=== PATIENT | female | born 1970 ===

== ENCOUNTER 2016-11-18 12:57 | Emergency (ER) | payer MEDICARE, OTHER, MEDICAID ==
[2016-11-18 13:10] VITALS: BMI 30.2
[2016-11-18 13:12] VITALS: TEMP 98.2
[2016-11-18 14:09] LABS: ADD MANUAL DIFF? NO
[2016-11-18 14:14] LABS: BASO # 0.02 K/mm3 (0.0-2.0); BASO % 0.2 % (0.0-3.0); EOS % 0.1 % (1.5-5.0); GRAN # 8.91 (1.4-6.5); GRAN % 76.3 % (50.0-68.0); HEMATOCRIT 40.2 % (36.0-48.0); LYMPH # 1.7 (1.2-3.4); LYMPH % 14.4 % (22.0-35.0); MEAN CELL VOLUME 80.6 fL (80.0-105.0); MEAN CORPUSCULAR HEMOGLOBIN 28.5 pg (25.0-35.0); MEAN CORPUSCULAR HGB CONC 35.3 g/dl (31.0-37.0); MEAN PLATELET VOLUME 10.1 fl (7.0-11.0); MONO # 1.1 (0.1-0.6); PLATELET COUNT 300 10^3/uL (120.0-450.0); RED CELL DISTRIBUTION WIDTH 15.7 % (11.5-14.5); WHITE BLOOD COUNT 11.7 10^3/ul (4.5-11.0)
[2016-11-18 14:24] LABS: INR 1.17 (0.93-1.08); PARTIAL THROMBOPLASTIN TIME 29.4 Seconds (23.7-30.8)
[2016-11-18 14:25] LABS: ALB/GLOB RATIO 1.2 (1.1-1.8); ALKALINE PHOSPHATASE 63 U/L (38-133); ALT/SGPT 27 U/L (7-56); AST/SGOT 35 U/L (15-39); BILIRUBIN,TOTAL 0.7 mg/dL (0.2-1.3); BLOOD UREA NITROGEN 10 mg/dL (7-21); CALCIUM 9.6 mg/dL (8.4-10.5); CARBON DIOXIDE 20 mmol/L (21-33); CHLORIDE 98 mmol/L (98-107); GFR AFRICAN-AMERICAN > 60; GLUCOSE,RANDOM 211 mg/dL (70-110); POTASSIUM 3.9 mmol/L (3.6-5.0); SODIUM 134 mmol/L (132-148); TOTAL PROTEIN 8.9 g/dL (5.8-8.3)
--- NOTE | 2016-11-18 14:25 | ED PDOC ---
Arrival/HPI - General Chief Complaint: Psychiatric Evaluation Time Seen by Provider: 11/18/16 14:16 Historian: Patient - History of Present Illness Narrative History of Present Illness (Text): 11/18/16 14:25 45yo female with psychiatric disease history BIBA for psych evaluation. Per the triage note, EMS reported that family patient called because she was violent and noncompliant with her medication. Patient however admits that she takes her medication daily. States she is not sure who called or why EMS was called for her. States she was on Xanax, but stopped taking it to detox herself from it. Denies hallucination, SI/HI, somatic complaint, drug use, any other complaint. Past Medical History - Provider Review Nursing Documentation Reviewed: Yes - Infectious Disease Hx of Infectious Diseases: None - Tetanus Immunization Tetanus Immunization: Unknown - Past Medical History Past Medical History: No Previous - Cardiac Hx Cardiac Disorders: No - Pulmonary Hx Respiratory Disorders: No - Neurological Hx Neurological Disorder: No - HEENT Hx HEENT Disorder: No - Renal Hx Renal Disorder: No - Endocrine/Metabolic Hx Endocrine Disorders: No - Hematological/Oncological Hx Blood Disorders: No - Integumentary Hx Dermatological Disorder: No - Musculoskeletal/Rheumatological Hx Musculoskeletal Disorders: No - Gastrointestinal Hx Gastrointestinal Disorders: No - Genitourinary/Gynecological Hx Genitourinary Disorders: No - Psychiatric Hx Psychophysiologic Disorder: Yes Hx Bipolar Disorder: Yes Hx Depression: No Hx Emotional Abuse: No Hx Physical Abuse: No Hx Schizophrenia: Yes Hx Substance Use: Yes (marijuana) - Surgical History Other/Comment: gastric sleeve - Anesthesia Hx Anesthesia: No Hx Anesthesia Reactions: No Hx Malignant Hyperthermia: No - Suicidal Assessment Feels Threatened In Home Enviroment: No Family/Social History - Physician Review Nursing Documentation Reviewed: Yes Family/Social History: Unknown Family HX Smoking Status: Current Some Days Smoker Hx Alcohol Use: Yes Frequency of alcohol use: Few days per week Hx Substance Use: Yes (marijuana) Substance used: Herion, Cocaine, PCP Hx Substance Use Treatment: Yes Allergies/Home Meds Allergies/Adverse Reactions: Allergies codeine Allergy (Verified 11/18/16 13:12) NAUSEA Home Medications: Home Meds Medication Instructions Recorded Confirmed DULoxetine [Cymbalta] 30 mg PO DAILY 01/21/14 07/11/15 Review of Systems - Physician Review All systems were reviewed & negative as marked: Yes - Review of Systems Constitutional: Normal Eyes: Normal ENT: Normal Respiratory: Normal Cardiovascular: Normal Gastrointestinal: Normal Genitourinary Female: Normal Musculoskeletal: Normal Skin: Normal Neurological: Normal Endocrine: Normal Hemo/Lymphatic: Normal Psychiatric: Other (Psych evaluation) Physical Exam Vital Signs Reviewed: Yes Vital Signs Temp Pulse Resp BP Pulse Ox 11/18/16 23:10 90 18 91/59 L 95 11/18/16 21:00 88 18 96/60 L 95 11/18/16 19:04 85 18 110/62 95 11/18/16 18:24 91 H 16 110/62 96 11/18/16 18:05 94 H 18 100/57 L 97 11/18/16 13:12 170/108 H 11/18/16 13:11 98.2 F 100 H 16 98 Temperature: Afebrile Blood Pressure: Normal Pulse: Regular Respiratory Rate: Normal Appearance: Positive for: Well-Appearing, Non-Toxic, Comfortable Pain Distress: None Mental Status: Positive for: Alert and Oriented X 3 - Systems Exam Head: Present: Atraumatic, Normocephalic Pupils: Present: PERRL Extroacular Muscles: Present: EOMI Conjunctiva: Present: Normal Mouth: Present: Moist Mucous Membranes Neck: Present: Normal Range of Motion Respiratory/Chest: Present: Clear to Auscultation, Good Air Exchange. No: Respiratory Distress, Accessory Muscle Use Cardiovascular: Present: Regular Rate and Rhythm, Normal S1, S2. No: Murmurs Abdomen: Present: Normal Bowel Sounds. No: Tenderness, Distention, Peritoneal Signs Back: Present: Normal Inspection Upper Extremity: Present: Normal Inspection. No: Cyanosis, Edema Lower Extremity: Present: Normal Inspection. No: Edema Neurological: Present: GCS=15, CN II-XII Intact, Speech Normal Skin: Present: Warm, Dry, Normal Color. No: Rashes Psychiatric: Present: Alert, Oriented x 3, Normal Insight, Normal Concentration Medical Decision Making ED Course and Treatment: 11/18/16 18:21 Pt biba for psych evaluation. while in ED she was loud and agitated. she was sedated for both her own safety and ED staffs. Lab was unremarkable Chest xray NAD Pt was medically cleared for psych evaluation. - Lab Interpretations Lab Results: 11/18/16 14:08 11/18/16 14:08 Lab Results 11/18/16 16:00: Alcohol, Quantitative < 10 11/18/16 16:00: Urine Opiates Screen Negative, Urine Methadone Screen Negative, Ur Barbiturates Screen Negative, Ur Phencyclidine Scrn Negative, Ur Amphetamines Screen Negative, U Benzodiazepines Scrn Negative, U Oth Cocaine Metabols Negative, U Cannabinoids Screen Negative 11/18/16 16:00: Urine Color Straw, Urine Appearance Clear, Urine pH 7.0, Ur Specific [place] <= 1.005, Urine Protein Negative, Urine Glucose (UA) Negative, Urine Ketones Negative, Urine Blood Trace-intact H, Urine Nitrate Negative, Urine Bilirubin Negative, Urine Urobilinogen 0.2, Ur Leukocyte Esterase Negative , Urine RBC 0 - 2, Urine WBC 0 - 2, Ur Epithelial Cells 1 - 3, Urine Bacteria Small, Urine HCG, Qual Negative 11/18/16 14:08: Salicylates < 1 L, Acetaminophen < 10.0 L 11/18/16 14:08: Sodium 134, Potassium 3.9, Chloride 98, Carbon Dioxide 20 L, Anion Gap 20, BUN 10, Creatinine 0.7, Est GFR ( Amer) > 60, Est GFR (Non- Af Amer) > 60, Random Glucose 211 H, Calcium 9.6, Total Bilirubin 0.7, AST 35, ALT 27, Alkaline Phosphatase 63, Total Protein 8.9 H, Albumin 4.8, Globulin 4.1 , Albumin/Globulin Ratio 1.2, Alcohol, Quantitative Cancelled 11/18/16 14:08: PT 12.6 H, INR 1.17 H, APTT 29.4 11/18/16 14:08: WBC 11.7 H D, RBC 4.99, Hgb 14.2, Hct 40.2, MCV 80.6, MCH 28.5, MCHC 35.3, RDW 15.7 H, Plt Count 300, MPV 10.1, Gran % 76.3 H, Lymph % (Auto) 14.4 L, [place] % (Auto) 9.0 H, Eos % (Auto) 0.1 L, Baso % (Auto) 0.2, Gran # 8.91 H, Lymph # 1.7, [place] # 1.1 H, Eos # 0.0, Baso # 0.02 - RAD Interpretation Radiology Orders: 11/18/16 15:23 CHEST PORTABLE [RAD] Stat - Medication Orders Current Medication Orders: Discontinued Medications Lorazepam (Ativan) Confirm Administered Dose 2 mg .ROUTE .STK-MED ONE Stop: 11/19/16 08:36 Lorazepam (Ativan) Confirm Administered Dose 2 mg .ROUTE .STK-MED ONE Stop: 11/19/16 16:59 Ziprasidone (Geodon Inj) 20 mg IM STAT STA PRN Reason: Protocol Stop: 11/18/16 16:10 Last Admin: 11/18/16 16:37 Dose: 20 mg Ziprasidone (Geodon Inj) Confirm Administered Dose 20 mg IM .STK-MED ONE Stop: 11/19/16 03:40 Ziprasidone (Geodon Inj) Confirm Administered Dose 20 mg IM .STK-MED ONE Stop: 11/19/16 08:35 Ziprasidone (Geodon Inj) Confirm Administered Dose 20 mg IM .STK-MED ONE Stop: 11/19/16 16:58 Disposition/Present on Arrival - Present on Arrival Any Indicators Present on Arrival: No History of DVT/PE: No History of Uncontrolled Diabetes: No Urinary Catheter: No History of Decub. Ulcer: No History Surgical Site Infection Following: None - Disposition Have Diagnosis and Disposition been Completed?: Yes Diagnosis: Psychosis Disposition: HOME/ ROUTINE Disposition Time: 08:00 Patient Plan: Discharge Condition: STABLE Referrals: PCP,NO [Primary Care Provider] - Follow up with primary
[2016-11-18 16:18] LABS: URINE BILIRUBIN NEGATIVE (NEGATIVE); URINE BLOOD TRACE-INTACT (NEGATIVE); URINE GLUCOSE (UA) NEGATIVE (NEGATIVE); URINE KETONE NEGATIVE (NEGATIVE); URINE LEUKOCYTE ESTERASE NEGATIVE Leu/uL (NEGATIVE); URINE PROTEIN NEGATIVE mg/dL (<30 mg/dL); URINE UROBILINOGEN 0.2 E.U./dL (<1 E.U./dL)
[2016-11-18 16:23] LABS: URINE APPEARANCE CLEAR (CLEAR); URINE COLOR STRAW (YELLOW)
[2016-11-18 16:58] LABS: URINE RBC 0 - 2 /hpf (0-2); URINE WBC 0 - 2 /hpf (0-6)
[2016-11-18 16:59] LABS: URINE BACTERIA SMALL (NEG)
--- NOTE | 2016-11-18 17:58 | RAD ---
HISTORY: admission COMPARISON: Chest x-ray performed 08/18/12 TECHNIQUE: Chest, one view. FINDINGS: LUNGS: No focal consolidation. Please note that chest x-ray has limited sensitivity for the detection of pulmonary masses. PLEURA: No significant pleural effusion identified. No definite pneumothorax . CARDIOVASCULAR: The cardiomediastinal silhouette appears within normal limits of size. OSSEOUS STRUCTURES: Degenerative changes of the spine. VISUALIZED UPPER ABDOMEN: Unremarkable. OTHER FINDINGS: None. IMPRESSION: No focal consolidation, significant pleural effusion, or definite pneumothorax identified.
[2016-11-18 19:05] VITALS: RESP 18; O2SAT 95
--- NOTE | 2016-11-18 22:17 | CARD ---
APPROVED REPORT EKG Measurement Heart [id number] SC [id number] <Conclusion> Normal sinus rhythm T wave abnormality, consider anterior ischemia Prolonged QT Abnormal ECG
[2016-11-18 23:11] VITALS: BP 91/59; PULSE 90
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
== END 2016-11-19 22:17 | disposition home or self-care (01) ==
LOC: ED 12:57
DX: F29 Unspecified psychosis not due to a substance or known physiological condition (principal)
CPT/HCPCS: 71010; 80053; 81001; 84703; 85025; 85610; 85730; 90791; 93005; 96372; 99285; G0480; J3486

== ENCOUNTER 2017-01-07 20:19 | Inpatient (IN) | payer MEDICARE, OTHER ==
[2017-01-07 20:27] VITALS: BMI 28.3
--- NOTE | 2017-01-07 20:37 | ED PDOC ---
Arrival/HPI - General Chief Complaint: Psychiatric Evaluation Time Seen by Provider: 01/07/17 20:32 Historian: Patient - History of Present Illness Narrative History of Present Illness (Text): 01/07/17 20:37 This 46 yo female with pmh bipolar disorder, aggressive behavior, presents to this ED for PES evaluation. Patient stated she has been suicidal for over 3 weeks. She feels irritable. She stated medication are not reliving her symptoms. She wants to get admitted into the hospital. Denies HI, paranoia, hallucination. Denies other complains. Time/Duration: Other (see HPI) Context: Home Past Medical History - Provider Review Nursing Documentation Reviewed: Yes - Infectious Disease Hx of Infectious Diseases: None - Tetanus Immunization Tetanus Immunization: Unknown - Past Medical History Past Medical History: No Previous - Cardiac Hx Cardiac Disorders: No - Pulmonary Hx Respiratory Disorders: No - Neurological Hx Neurological Disorder: No - HEENT Hx HEENT Disorder: No - Renal Hx Renal Disorder: No - Endocrine/Metabolic Hx Endocrine Disorders: No - Hematological/Oncological Hx Blood Disorders: No - Integumentary Hx Dermatological Disorder: No - Musculoskeletal/Rheumatological Hx Musculoskeletal Disorders: No - Gastrointestinal Hx Gastrointestinal Disorders: No - Genitourinary/Gynecological Hx Genitourinary Disorders: No - Psychiatric Hx Psychophysiologic Disorder: Yes Hx Bipolar Disorder: Yes Hx Depression: No Hx Emotional Abuse: No Hx Physical Abuse: No Hx Schizophrenia: Yes Hx Substance Use: Yes (marijuana) Other/Comment: h/o suicide attempt by overdosing on pills - Surgical History Other/Comment: gastric sleeve - Anesthesia Hx Anesthesia: Yes Hx Anesthesia Reactions: No Hx Malignant Hyperthermia: No - Suicidal Assessment Feels Threatened In Home Enviroment: No Family/Social History - Physician Review Nursing Documentation Reviewed: Yes Family/Social History: No Known Family HX Smoking Status: Heavy Smoker > 10 Cigarettes Daily Hx Alcohol Use: Yes (stopped 8 years ago) Hx Substance Use: Yes (marijuana) Substance used: Herion, Cocaine, PCP Hx Substance Use Treatment: Yes Allergies/Home Meds Allergies/Adverse Reactions: Allergies codeine Allergy (Verified 01/08/17 05:25) NAUSEA Home Medications: Home Meds Medication Instructions Recorded Confirmed DULoxetine [Cymbalta] 60 mg PO DAILY 01/21/14 01/08/17 Alprazolam [Xanax] 1 mg PO BID 01/08/17 01/08/17 Divalproex [Depakote] 1,000 mg PO HS 01/08/17 01/08/17 QUEtiapine [SEROquel] 50 mg PO DAILY 01/08/17 01/08/17 SEROquel 300 mg PO HS 01/08/17 01/08/17 Review of Systems - Review of Systems Constitutional: Normal. absent: Fatigue, Weight Change, Fevers Eyes: Normal ENT: Normal Respiratory: Normal Cardiovascular: Normal Gastrointestinal: Normal Genitourinary Female: Normal Musculoskeletal: Normal Skin: Normal Neurological: Normal Endocrine: Normal Hemo/Lymphatic: Normal Psychiatric: Depression, Suicidal Ideation Physical Exam Vital Signs Temp Pulse Resp BP Pulse Ox 01/08/17 03:11 71 18 127/81 98 01/07/17 23:30 70 18 126/69 100 01/07/17 20:27 98.0 F 76 18 116/84 97 Temperature: Afebrile Blood Pressure: Normal Pulse: Regular Respiratory Rate: Normal Appearance: Positive for: Well-Appearing, Non-Toxic, Comfortable Pain Distress: None Mental Status: Positive for: Alert and Oriented X 3 - Systems Exam Head: Present: Atraumatic, Normocephalic Pupils: Present: PERRL Extroacular Muscles: Present: EOMI Conjunctiva: Present: Normal Mouth: Present: Moist Mucous Membranes Neck: Present: Normal Range of Motion Respiratory/Chest: Present: Clear to Auscultation, Good Air Exchange. No: Respiratory Distress, Accessory Muscle Use Cardiovascular: Present: Regular Rate and Rhythm, Normal S1, S2. No: Murmurs Abdomen: Present: Normal Bowel Sounds. No: Tenderness, Distention, Peritoneal Signs Back: Present: Normal Inspection Upper Extremity: Present: Normal Inspection, Normal ROM, NORMAL PULSES, Neurovascularly Intact, Capillary Refill < 2s. No: Cyanosis, Edema Lower Extremity: Present: Normal Inspection, NORMAL PULSES, Normal ROM, Neurovascularly Intact, Capillary Refill < 2 s. No: Edema, CALF TENDERNESS Neurological: Present: GCS=15, CN II-XII Intact, Speech Normal, Motor Func Grossly Intact, Normal Sensory Function, Normal Cerebellar Funct, Gait Normal, Memory Normal Skin: Present: Warm, Dry, Normal Color. No: Rashes Psychiatric: Present: Alert, Oriented x 3, Homicidal Ideation Medical Decision Making ED Course and Treatment: 01/07/17 23:06 PES screener stated patient is becoming irritable, and she does not want to be admitted in the hospital. PES screener is recommending [facility] PES evaluation for involuntary. 01/07/17 23:09 Patient is medically clear for psychiatric admission Re-evaluation Time: 23:08 Reassessment Condition: Re-examined, Improving,but remains with symptoms - Lab Interpretations Lab Results: 01/07/17 22:10 01/07/17 22:10 Lab Results 01/07/17 22:10: Alcohol, Quantitative < 10 01/07/17 22:10: Salicylates < 1 L, Acetaminophen < 10.0 L 01/07/17 22:10: Sodium 139, Potassium 4.2, Chloride 105, Carbon Dioxide 28, Anion Gap 10, BUN 13, Creatinine 0.7, Est GFR ( Amer) > 60, Est GFR (Non- Af Amer) > 60, Random Glucose 76, Calcium 8.8, Total Bilirubin 0.4, AST 26, ALT 21, Alkaline Phosphatase 57, Total Protein 7.7, Albumin 3.9, Globulin 3.7, Albumin/Globulin Ratio 1.1 01/07/17 22:10: WBC 7.2 D, RBC 4.52, Hgb 12.6, Hct 37.6, MCV 83.2, MCH 27.9, MCHC 33.5, RDW 15.4 H, Plt Count 240, MPV 9.8, Gran % 55.9, Lymph % (Auto) 33.4 , [place] % (Auto) 7.2 H, Eos % (Auto) 3.2, Baso % (Auto) 0.3, Gran # 4.04, Lymph # 2.4, [place] # 0.5, Eos # 0.2, Baso # 0.02 01/07/17 20:45: Urine Opiates Screen Negative, Urine Methadone Screen Negative, Ur Barbiturates Screen Negative, Ur Phencyclidine Scrn Negative, Ur Amphetamines Screen Negative, U Benzodiazepines Scrn Positive H, U Oth Cocaine Metabols Negative, U Cannabinoids Screen Negative 01/07/17 20:45: Urine Color Yellow, Urine Appearance Clear, Urine pH 6.0, Ur Specific [place] >= 1.030, Urine Protein Negative, Urine Glucose (UA) Negative, Urine Ketones Trace H, Urine Blood Negative, Urine Nitrate Negative, Urine Bilirubin Negative, Urine Urobilinogen 0.2, Ur Leukocyte Esterase Negative, Urine HCG, Qual Negative - RAD Interpretation Narrative RAD Interpretations (Text): 01/07/17 23:08 CHEST X-RAYS: NO ACTIVE DISEASE Radiology Orders: 01/07/17 20:37 CHEST PORTABLE [RAD] Stat - EKG Interpretation Interpreted by ED Physician: Yes (nsr @ [address] chages. normal interval) Type: 12 lead EKG Comparison: No previous EKG avail. - Medication Orders Current Medication Orders: Acetaminophen (Tylenol 325mg Tab) 650 mg PO Q4 PRN PRN Reason: Pain, moderate (4-7) Last Admin: 01/08/17 19:04 Dose: 650 mg Re-Assess: MAR Pain/Vitals Document 01/08/17 20:04 WP (Rec: 01/09/17 01:46 WP [id number]) Pain Reassessment Is This A Pain ReAssessment? Yes Sleep Is patient sleeping during reassessment? No Presence of Pain Presence of Pain No Al Hydrox/Mg Hydrox/Simethicone (Maalox Plus 30 Ml) 30 ml PO DAILY PRN PRN Reason: Upset Stomach Last Admin: 01/08/17 19:03 Dose: 30 ml Atorvastatin Calcium (Lipitor) 40 mg PO DIN ANSON Last Admin: 01/10/17 16:04 Dose: 40 mg Clonazepam (Klonopin) 1 mg PO BID ANSON PRN Reason: Protocol Last Admin: 01/10/17 16:04 Dose: 1 mg Re-Assess: Reassess Psych Meds Document 01/10/17 17:04 TW (Rec: 01/10/17 17:16 TW [id number]) Reassess Psych Med Effective Divalproex Sodium (Depakote Dr(*Bid*)) 500 mg PO [facility] Last Admin: 01/10/17 09:12 Dose: 500 mg Re-Assess: Reassess Psych Meds Document 01/10/17 10:12 TW (Rec: 01/10/17 10:17 TW [id number]) Reassess Psych Med Effective Divalproex Sodium (Depakote Er(Once Daily)) 500 mg PO 1400 [facility] Last Admin: 01/10/17 16:04 Dose: 500 mg Re-Assess: Reassess Psych Meds Document 01/10/17 17:04 TW (Rec: 01/10/17 17:16 [id number]) Reassess Psych Med Effective Fluoxetine HCl (Prozac) 30 mg PO DAILY [facility] Magnesium Hydroxide (Milk Of Magnesia) 30 ml PO DAILY PRN PRN Reason: Constipation Nicotine (Nicoderm Cq) 1 patch TD DAILY [facility] Last Admin: 01/10/17 09:12 Dose: 1 patch Quetiapine Fumarate (Seroquel) 150 mg PO [facility] ANSON PRN Reason: Protocol Last Admin: 01/10/17 09:13 Dose: 150 mg Re-Assess: Reassess Psych Meds Document 01/10/17 10:13 TW (Rec: 01/10/17 10:17 [id number]) Reassess Psych Med Effective Ziprasidone (Geodon Cap) 20 mg PO Q6H PRN; Protocol PRN Reason: agitation/psychosis Last Admin: 01/10/17 03:38 Dose: 20 mg Re-Assess: Reassess Psych Meds Document 01/10/17 08:23 TW (Rec: 01/10/17 08:23 [id number]) Reassess Psych Med Effective Ziprasidone (Geodon Inj) 20 mg IM Q6H PRN; Protocol PRN Reason: agitation/aggression/psychosis Zolpidem Tartrate (Ambien) 5 mg PO HS PRN; Protocol PRN Reason: Insomnia Discontinued Medications Divalproex Sodium (Depakote Dr(*Bid*)) 500 mg PO 1400 [facility] Fluoxetine HCl (Prozac) 20 mg PO DAILY [facility] Last Admin: 01/10/17 09:13 Dose: 20 mg Lorazepam (Ativan) 2 mg IM ONCE ONE PRN Reason: Protocol Stop: 01/07/17 23:22 Last Admin: 01/07/17 23:32 Dose: 2 mg Lorazepam (Ativan) 2 mg IM ONCE ONE PRN Reason: Protocol Stop: 01/08/17 02:49 Last Admin: 01/08/17 03:10 Dose: 2 mg Disposition/Present on Arrival - Present on Arrival Any Indicators Present on Arrival: No History of DVT/PE: No History of Uncontrolled Diabetes: No Urinary Catheter: No History of Decub. Ulcer: No History Surgical Site Infection Following: None - Disposition Have Diagnosis and Disposition been Completed?: Yes Diagnosis: Bipolar 1 disorder Disposition: HOSPITALIZED Disposition Time: 02:30 Patient Problems: Current Active Problems Problem Status Onset Bipolar 1 disorder Acute PTSD (post-traumatic stress disorder) Acute Panic disorder Acute Schizoaffective disorder Acute Condition: GOOD
[2017-01-07 20:54] LABS: URINE APPEARANCE CLEAR (CLEAR); URINE BILIRUBIN NEGATIVE (NEGATIVE); URINE BLOOD NEGATIVE (NEGATIVE); URINE COLOR YELLOW (YELLOW); URINE GLUCOSE (UA) NEGATIVE (NEGATIVE); URINE LEUKOCYTE ESTERASE NEGATIVE Leu/uL (NEGATIVE); URINE NITRATE NEGATIVE (NEGATIVE); URINE PROTEIN NEGATIVE mg/dL (<30 mg/dL); URINE UROBILINOGEN 0.2 E.U./dL (<1 E.U./dL)
[2017-01-07 20:57] LABS: HCG,QUALITATIVE URINE NEGATIVE (NEGATIVE)
[2017-01-07 21:13] LABS: BARBITURATES, UR NEGATIVE (NEGATIVE); BENZODIAZEPINES, UR POSITIVE (NEGATIVE); OPIATES, UR NEGATIVE (NEGATIVE); PHENCYCLIDINE, UR NEGATIVE (NEGATIVE)
[2017-01-07 22:25] LABS: BASO # 0.02 K/mm3 (0.0-2.0); BASO % 0.3 % (0.0-3.0); EOS # 0.2 (0.0-0.7); EOS % 3.2 % (1.5-5.0); GRAN # 4.04 (1.4-6.5); GRAN % 55.9 % (50.0-68.0); HEMOGLOBIN 12.6 gm/dL (12.0-16.0); LYMPH # 2.4 (1.2-3.4); LYMPH % 33.4 % (22.0-35.0); MEAN CELL VOLUME 83.2 fL (80.0-105.0); MEAN CORPUSCULAR HEMOGLOBIN 27.9 pg (25.0-35.0); MEAN CORPUSCULAR HGB CONC 33.5 g/dl (31.0-37.0); MEAN PLATELET VOLUME 9.8 fl (7.0-11.0); MONO # 0.5 (0.1-0.6); MONO % 7.2 % (1.0-6.0); PLATELET COUNT 240 10^3/uL (120.0-450.0); RBC 4.52 10^6/uL (3.5-6.1); RED CELL DISTRIBUTION WIDTH 15.4 % (11.5-14.5); WHITE BLOOD COUNT 7.2 10^3/ul (4.5-11.0)
[2017-01-07 22:36] LABS: SALICYLATE < 1 mg/dL (2.0-20.0)
[2017-01-07 22:39] LABS: ALB/GLOB RATIO 1.1 (1.1-1.8); ALBUMIN 3.9 g/dL (3.0-4.8); ALT/SGPT 21 U/L (7-56); AST/SGOT 26 U/L (15-39); BLOOD UREA NITROGEN 13 mg/dL (7-21); CALCIUM 8.8 mg/dL (8.4-10.5); GFR AFRICAN-AMERICAN > 60; GFR NON-AFRICAN AMERICAN > 60
[2017-01-07 22:46] LABS: ACETAMINOPHEN < 10.0 ug/ml (10.0-20.0)
[2017-01-08 03:12] VITALS: O2SAT 98
[2017-01-08] MEDS ORDERED: Magnesium Hydroxide Susp 30 ml UD PO PRN (05:27)
[2017-01-08] MEDS ORDERED: Alum-Mag Hydrox-Simethicone Susp (30 mL) PO PRN (05:27)
--- NOTE | 2017-01-08 06:10 | PCM.BM ---
Addendum entered and electronically signed by Kayleigh Bauer AT 01/08/17 12:16: Treatment Plan Problems - Problems identified on initial assessmt depression Date Initiated: 01/08/17 Time Initiated: 05:35 Assessment reference: NA Status: Active Problem 1 Date Initiated: 01/08/17 Time Initiated: 05:35 Assessment reference: HP Status: Referred Original Note: <Maria Teresa Holm - Last Filed: 01/08/17 06:07> Treatment Plan Problems - Problems identified on initial assessmt depression Date Initiated: 01/08/17 Time Initiated: 05:35 Assessment reference: NA Status: Active Problem 1 Date Initiated: 01/08/17 Time Initiated: 05:35 Assessment reference: HP Status: Referred Treatment assets and liabiliti Patient Assests: self-reliant, ADL independent, cognitively intact Patient Liabilities: poor support system, relationship conflicts, substance abuse - Milieu Protocol Maintain good personal hygiene: daily Encourage regular showers, daily Remind patient to perform daily oral care Conduct patient checks and document Observation sheet: Q15 minutes Maintain personal safety: every shift Educate patient to report safety concerns to staff, every shift Monitor environment for contraband/sharps Medication safety: Monitor for expected outcome, potential side effects: every shift, Assess barriers to learning: every shift, Assess readiness for medication education: every shift Family Contact Family involvement: Famliy/SO not involved <Kayleigh Bauer - Last Filed: 01/08/17 12:16> <Fatoumata Goncalves - Last Filed: 01/08/17 15:42> - Diagnosis (1) Bipolar 1 disorder Status: Acute Interventions: 01/08/17 15:39 Psychoeducation Psychopharmacology/adjustment of medications as needed/ monitoring possible side effects Monitor blood level of mood stabilizers Evaluate pt on daily basis Compliance with medications and follow up appointments Suicide and homicide risk assessment and prevention, coping strategies, safety plan Relapse prevention Reduction of symptoms Improve functional status Family intervention As outpatient: cognitive behavioral therapy (2) Schizoaffective disorder Status: Acute Interventions: 01/08/17 15:41 Psychoeducation/psychotherapy Psychopharmacology/adjustment of medications as needed/ monitoring possible side effects Evaluate pt on daily basis Compliance with medications and follow up appointments Long acting medication if pt is noncompliant with pill form Suicide and homicide risk assessment and prevention, coping strategies, safety plan Relapse prevention Reduction of symptoms Improve functional status Possible assertive community treatment Cognitive behavioral therapy Family intervention Possible social skill training as outpatient (3) PTSD (post-traumatic stress disorder) Status: Acute Interventions: 01/08/17 15:42 Psychoeducation Psychopharmacology/adjustment of medications as needed/ monitoring possible side effects Evaluate pt on daily basis Compliance with medications and follow up appointments Suicide and homicide risk assessment and prevention, coping strategies, safety plan Reduction of symptoms Relaxation techniques and breathing exercises Improve functional status Family intervention As outpatient: cognitive behavioral therapy (4) Panic disorder Status: Acute Interventions: 01/08/17 15:42 Psychoeducation Psychopharmacology/adjustment of medications as needed/ monitoring possible side effects Evaluate pt on daily basis Compliance with medications and follow up appointments Suicide and homicide risk assessment and prevention, coping strategies, safety plan Reduction of symptoms Relaxation techniques and breathing exercises Improve functional status Family intervention As outpatient: cognitive behavioral therapy
[2017-01-08 07:32] LABS: GLUCOSE,FASTING 77 mg/dL (65-110); HDL CHOLESTEROL 52 mg/dL (29-60); LDL CHOLESTEROL 214 mg/dL (0-129)
--- NOTE | 2017-01-08 08:46 | RAD ---
HISTORY: PES eval COMPARISON: Comparison is made to 11/18/2016 FINDINGS: LUNGS: No active pulmonary disease. PLEURA: No significant pleural effusion identified, no pneumothorax apparent. CARDIOVASCULAR: Normal. OSSEOUS STRUCTURES: No significant abnormalities. VISUALIZED UPPER ABDOMEN: Normal. OTHER FINDINGS: None. IMPRESSION: No active disease.
--- NOTE | 2017-01-08 10:38 | CARD ---
APPROVED REPORT EKG Measurement Heart [id number] IN [id number] <Conclusion> Normal sinus rhythm Septal infarct, age undetermined T waves now flat to shallowly upright V 2 - 6 c/w ECG 11/18/16 Prolonged QTc
[2017-01-08] MEDS ORDERED: Divalproex 250 mg DR (BID formulation) PO SCH (13:00)
[2017-01-08] MEDS: Divalproex 500 mg ER (ONCE DAILY formulation) PO SCH (13:43)
[2017-01-08] MEDS ORDERED: Divalproex 500 mg DR(BID formulation) PO SCH (14:00)
--- NOTE | 2017-01-08 15:12 | CP.PCM.HP ---
<CARLOS BARBOUR - Last Filed: 01/08/17 15:05> History of Present Illness - History of Present Illness History of Present Illness: Ms. Aggie Guzman is a 46 yo female with pmh bipolar disorder, aggressive behavior, presents to this ED for PES evaluation. Patient stated she has been suicidal for over 3 weeks. She feels irritable. She stated medication are not relieving her symptoms. She wants to get admitted into the hospital. Denies HI , paranoia, hallucination. Denies other complaints. EKG showed NSR with no ST changes. CXR revealed no active disease. PMH: Bipolar disease, hx of aggressive behavior PSH: unknown SHx: +ETOH, marijuana, tobacco (>10 cigarettes daily); ADL independent, poor support system, relationship conflicts Allergies: codeine Present on Admission - Present on Admission Any Indicators Present on Admission: No Review of Systems - Review of Systems All systems: reviewed and no additional remarkable complaints except - Psychiatric Psychiatric: As Per HPI Past Patient History - Infectious Disease Hx of Infectious Diseases: None - Tetanus Immunizations Tetanus Immunization: Unknown - Past Social History Smoking Status: Heavy Smoker > 10 Cigarettes Daily - CARDIAC Hx Cardiac Disorders: No - PULMONARY Hx Respiratory Disorders: No - NEUROLOGICAL Hx Neurological Disorder: No - HEENT Hx HEENT Problems: No - RENAL Hx Chronic Kidney Disease: No - ENDOCRINE/METABOLIC Hx Endocrine Disorders: No - HEMATOLOGICAL/ONCOLOGICAL Hx Blood Disorders: No - INTEGUMENTARY Hx Dermatological Problems: No - MUSCULOSKELETAL/RHEUMATOLOGICAL Hx Musculoskeletal Disorders: No - GASTROINTESTINAL Hx Gastrointestinal Disorders: No - GENITOURINARY/GYNECOLOGICAL Hx Genitourinary Disorders: No - PSYCHIATRIC Hx Bipolar Disorder: Yes Hx Schizophrenia: Yes Hx Substance Use: Yes - SURGICAL HISTORY Other/Comment: gastric sleeve - ANESTHESIA Hx Anesthesia: Yes Hx Anesthesia Reactions: No Hx Malignant Hyperthermia: No Meds Allergies/Adverse Reactions: Allergies Allergy/AdvReac Type Severity Reaction Status Date / Time codeine Allergy NAUSEA Verified 01/08/17 05:25 Physical Exam - Constitutional Appears: Well, No Acute Distress - Head Exam Head Exam: NORMAL INSPECTION - Eye Exam Eye Exam: Normal appearance - ENT Exam ENT Exam: Mucous Membranes Moist, Normal Exam - Respiratory Exam Respiratory Exam: NORMAL BREATHING PATTERN. absent: Accessory Muscle Use, Respiratory Distress - Cardiovascular Exam Cardiovascular Exam: REGULAR RHYTHM - GI/Abdominal Exam GI & Abdominal Exam: absent: Distended - Neurological Exam Neurological exam: Alert, Normal Gait - Psychiatric Exam Psychiatric exam: Normal Affect, Normal Mood - Skin Skin Exam: Normal Color Results - Vital Signs Recent Vital Signs: Last Vital Signs Temp 98.8 F 01/08/17 07:18 Pulse 74 01/08/17 07:18 Resp 20 01/08/17 07:18 BP 115/88 01/08/17 07:18 Pulse Ox 98 01/08/17 03:11 - Labs Result Diagrams: 01/07/17 22:10 01/07/17 22:10 Labs: Laboratory Results - last 24 hr 01/08/17 01/08/17 05:00 05:28 Fasting Glucose 77 Triglycerides 136 Cholesterol 294 H LDL Cholesterol Direct 214 H HDL Cholesterol 52 TSH 3rd Generation 0.56 Assessment & Plan - Assessment and Plan (Free Text) Assessment: 46 yo female with PMH of bipolar disorder, aggressive behavior, presents to this ED for PES evaluation. Patient states that she has had suicidal ideation for over 3 weeks. 1. Suicidal ideation - follow psych treatment plan 2. Bipolar disorder - follow psych treatment plan 3. Hyperlipidemia (LDL 214) - start on atorvastatin 40mg PO daily Pt needs no further medical management. Signing off on patient. Patient seen, discussed, evaluated with attending, Dr. Sebastián Barbour, PGY1 - Date & Time Date: 01/08/17 Time: 15:15 <Calos Lowery - Last Filed: 01/08/17 16:45> Results - Vital Signs Recent Vital Signs: Last Vital Signs Temp 98.8 F 01/08/17 07:18 Pulse 72 01/08/17 16:27 Resp 20 01/08/17 07:18 BP 109/73 01/08/17 16:27 Pulse Ox 98 01/08/17 03:11 - Labs Result Diagrams: 01/07/17 22:10 01/07/17 22:10 Labs: Laboratory Results - last 24 hr 01/08/17 01/08/17 05:00 05:28 Fasting Glucose 77 Triglycerides 136 Cholesterol 294 H LDL Cholesterol Direct 214 H HDL Cholesterol 52 TSH 3rd Generation 0.56 Attending/Attestation - Attestation I have personally seen and examined this patient.: Yes I have fully participated in the care of the patient.: Yes I have reviewed all pertinent clinical information: Yes Notes (Text): No acute medical issues. chronic medical issues. High cholesterol manage by diet and may start statin if unable to control diet. Continue management per psych
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
[2017-01-08] MEDS: Divalproex 500 mg DR(BID formulation) PO SCH (21:31)
[2017-01-09] MEDS: Divalproex 500 mg DR(BID formulation) PO SCH ×2 (09:56→21:45)
--- NOTE | 2017-01-09 12:22 | PCM.PYCHPN ---
Psychiatric Progress Note - Psychiatric Progress Note Patient seen today, length of contact: 30 minutes Patient Chief Complaint: "ow long that I need to stay here?" Problems Identified/Issues Discussed: Suicide/ homicide prevention, past psychiatric h/o, current psychiatric symptoms , medical problems, risk/benefits and alternatives of medications, medications compliance, coping strategies, substance abuse h/o, relapse prevention, importance of follow up with psychiatrist and therapist, discharge plan. Medical Problems: pt is relatively healthy was seen by Medical team consult appreciated Diagnostic Results: 01/07/17 22:10 01/07/17 22:10 Lab Results 01/09/17 07:00: Valproic Acid 76 01/08/17 07:30: RPR Nonreactive 01/08/17 05:28: TSH 3rd Generation 0.56 01/08/17 05:00: Fasting Glucose 77, Triglycerides 136, Cholesterol 294 H, LDL Cholesterol Direct 214 H, HDL Cholesterol 52 01/07/17 22:10: Alcohol, Quantitative < 10 01/07/17 22:10: Salicylates < 1 L, Acetaminophen < 10.0 L 01/07/17 22:10: Sodium 139, Potassium 4.2, Chloride 105, Carbon Dioxide 28, Anion Gap 10, BUN 13, Creatinine 0.7, Est GFR ( Amer) > 60, Est GFR (Non- Af Amer) > 60, Random Glucose 76, Calcium 8.8, Total Bilirubin 0.4, AST 26, ALT 21, Alkaline Phosphatase 57, Total Protein 7.7, Albumin 3.9, Globulin 3.7, Albumin/Globulin Ratio 1.1 01/07/17 22:10: WBC 7.2 D, RBC 4.52, Hgb 12.6, Hct 37.6, MCV 83.2, MCH 27.9, MCHC 33.5, RDW 15.4 H, Plt Count 240, MPV 9.8, Gran % 55.9, Lymph % (Auto) 33.4 , [place] % (Auto) 7.2 H, Eos % (Auto) 3.2, Baso % (Auto) 0.3, Gran # 4.04, Lymph # 2.4, [place] # 0.5, Eos # 0.2, Baso # 0.02 01/07/17 20:45: Urine Opiates Screen Negative, Urine Methadone Screen Negative, Ur Barbiturates Screen Negative, Ur Phencyclidine Scrn Negative, Ur Amphetamines Screen Negative, U Benzodiazepines Scrn Positive H, U Oth Cocaine Metabols Negative, U Cannabinoids Screen Negative 01/07/17 20:45: Urine Color Yellow, Urine Appearance Clear, Urine pH 6.0, Ur Specific [place] >= 1.030, Urine Protein Negative, Urine Glucose (UA) Negative, Urine Ketones Trace H, Urine Blood Negative, Urine Nitrate Negative, Urine Bilirubin Negative, Urine Urobilinogen 0.2, Ur Leukocyte Esterase Negative, Urine HCG, Qual Negative Vital Signs Temp Pulse Resp BP Pulse Ox 01/09/17 07:09 97.6 F 61 20 112/65 01/08/17 16:27 72 109/73 01/08/17 07:18 98.8 F 74 20 115/88 01/08/17 03:11 71 18 127/81 98 01/07/17 23:30 70 18 126/69 100 01/07/17 20:27 98.0 F 76 18 116/84 97 DSM 5 Symptoms Update: shortly pt 46yo female, h/o mental illness, most likely bipolar disorder with psychosis, vs schizoaffective disorder, multiple psychiatric admissions in the past, most recent was in November 2016, this typewriters functional tester is very familiar with this pt from the CL service in the ED (11/19/2016), back then pt was screened by [facility] was accepted there. This time pt came to the hospital looking for help for her depressive symptoms, suicidal ideation with the plan to overdose on pills, pt also verbalizing thoughts of harming others. Pt was recently discharged from the [facility] in December 2016, where she staid for 12 days. Pt currently under care of local psychiatrist Dr.Paul Gupta, needs further evaluation/ stabilization and medication titration. pt was seen today in her room, presented to be sleepy, seems to be irritable, asked when she will be d/c. as per staff pt is compliant with meds, no agitation or aggression, pt is irritable and annoyed. pt said that she was feeling depressed "I am still down, hopeless", pt denied thoughts of harming self or others but in ED pt said that she was thinking of overdosing on medications "I would overdose on pills because it is the easiest thing." pt denied hearing voices, denied seeing things, does not appear to be psychotic. pt tolerates meds well, no side effects observed or reported, AIMS 0, no EPS, pt c/o of sleepiness, this typewriters functional tester educated pt that within a few days her body will get used to the medication, pt verbalized understanding. Impression: DSM 5 schizoaffective disorder bipolar disorder with psychosis PTSD Panic disorder CRIS Medication Change: Yes (increased yesterday) Medical Record Reviewed: Yes Consults ordered or reviewed: medical team consult appreciated Mental Status Examination - Cognitive Function Orientation: Person, Place, Situation Memory: Intact Attention: Poor Concentration: Poor Association: WNL Fund of Knowledge: WNL - Mood Mood: Depressed - Affect Affect: Flat (irritable, angry) - Speech Speech: Appropriate - Formal Thought Process Formal Thought Process: Hallucinations (in ED, during interview pt deneid ) - Suicidal Ideation Suicidal Ideation: No - Homicidal Ideation Homicidal Ideation: No Goal/Treatment Plan - Goal/Treatment Plan Need for Continued Stay: Remain at risks for inpatient hospitalization, Severe depression anxiety, Discharge may exacerbated symptoms, Severe functional impairment Progress Toward Problem(s) and Goals/Treatment Plan: Milieu/structure/supportive therapy prozac 20mg po daily for depression and anxiety klonopin 1mg po bid for anxiety and mood stabilization depakote 500mg po tid for mood stabilization seroquel 150mg amhs for psychosis and mood stabilization ambien 5mg hs for insomnia depakote level 01/09/17 : 76 (most likely pt was compliant with meds) Medical team consult SW evaluation will monitor pt closely Estimated Date of D/C: 01/15/17 (will monitor closely) - Smoking Cessation Smoking Cessation Initiated: Yes
[2017-01-09] MEDS: Divalproex 500 mg ER (ONCE DAILY formulation) PO SCH (15:22)
[2017-01-10] MEDS: Divalproex 500 mg DR(BID formulation) PO SCH ×2 (09:12→21:11)
--- NOTE | 2017-01-10 11:50 | PCM.PYCHPN ---
Psychiatric Progress Note - Psychiatric Progress Note Patient seen today, length of contact: 30 minutes Patient Chief Complaint: "I think I have anger problems...." Problems Identified/Issues Discussed: Suicide/ homicide prevention, past psychiatric h/o, current psychiatric symptoms , medical problems, risk/benefits and alternatives of medications, medications compliance, coping strategies, substance abuse h/o, relapse prevention, importance of follow up with psychiatrist and therapist, discharge plan. Medical Problems: pt is relatively healthy was seen by Medical team consult appreciated Diagnostic Results: 01/07/17 22:10 01/07/17 22:10 Lab Results 01/09/17 07:00: Valproic Acid 76 01/08/17 07:30: RPR Nonreactive 01/08/17 05:28: TSH 3rd Generation 0.56 01/08/17 05:00: Fasting Glucose 77, Triglycerides 136, Cholesterol 294 H, LDL Cholesterol Direct 214 H, HDL Cholesterol 52 01/07/17 22:10: Alcohol, Quantitative < 10 01/07/17 22:10: Salicylates < 1 L, Acetaminophen < 10.0 L 01/07/17 22:10: Sodium 139, Potassium 4.2, Chloride 105, Carbon Dioxide 28, Anion Gap 10, BUN 13, Creatinine 0.7, Est GFR ( Amer) > 60, Est GFR (Non- Af Amer) > 60, Random Glucose 76, Calcium 8.8, Total Bilirubin 0.4, AST 26, ALT 21, Alkaline Phosphatase 57, Total Protein 7.7, Albumin 3.9, Globulin 3.7, Albumin/Globulin Ratio 1.1 01/07/17 22:10: WBC 7.2 D, RBC 4.52, Hgb 12.6, Hct 37.6, MCV 83.2, MCH 27.9, MCHC 33.5, RDW 15.4 H, Plt Count 240, MPV 9.8, Gran % 55.9, Lymph % (Auto) 33.4 , [place] % (Auto) 7.2 H, Eos % (Auto) 3.2, Baso % (Auto) 0.3, Gran # 4.04, Lymph # 2.4, [place] # 0.5, Eos # 0.2, Baso # 0.02 01/07/17 20:45: Urine Opiates Screen Negative, Urine Methadone Screen Negative, Ur Barbiturates Screen Negative, Ur Phencyclidine Scrn Negative, Ur Amphetamines Screen Negative, U Benzodiazepines Scrn Positive H, U Oth Cocaine Metabols Negative, U Cannabinoids Screen Negative 01/07/17 20:45: Urine Color Yellow, Urine Appearance Clear, Urine pH 6.0, Ur Specific [place] >= 1.030, Urine Protein Negative, Urine Glucose (UA) Negative, Urine Ketones Trace H, Urine Blood Negative, Urine Nitrate Negative, Urine Bilirubin Negative, Urine Urobilinogen 0.2, Ur Leukocyte Esterase Negative, Urine HCG, Qual Negative Vital Signs Temp Pulse Resp BP Pulse Ox 01/09/17 07:09 97.6 F 61 20 112/65 01/08/17 16:27 72 109/73 01/08/17 07:18 98.8 F 74 20 115/88 01/08/17 03:11 71 18 127/81 98 01/07/17 23:30 70 18 126/69 100 01/07/17 20:27 98.0 F 76 18 116/84 97 Temp Pulse Resp BP Pulse Ox 97.8 F 66 18 112/76 98 01/10/17 06:50 01/10/17 06:50 01/10/17 06:50 01/10/17 06:50 01/08/17 03:11 DSM 5 Symptoms Update: shortly pt 46yo female, h/o mental illness, most likely bipolar disorder with psychosis, vs schizoaffective disorder, multiple psychiatric admissions in the past, most recent was in November 2016, this policy writer sales is very familiar with this pt from the CL service in the ED (11/19/2016), back then pt was screened by [facility] was accepted there. This time pt came to the hospital looking for help for her depressive symptoms, suicidal ideation with the plan to overdose on pills, pt also verbalizing thoughts of harming others. Pt was recently discharged from the [facility] in December 2016, where she staid for 12 days. Pt currently under care of local psychiatrist Dr.Paul Gupta, needs further evaluation/ stabilization and medication titration. pt was seen today next to the nursing station, pt presented with some improvement with her personal hygiene, pt was less irritable, as per RN there was one episode when other pt was cursing but pt did not responded to that, just walked away which gives this policy writer sales impression that pt is in good impulse control. Pt said that she has anger issues and has poor relationship with her boyfriend, this policy writer sales suggested anger management and family therapy "I think it is a very good idea". as per staff pt is compliant with meds, no agitation or aggression, pt is irritable and annoyed. pt said that she was feeling "little better, but still down and depressed" pt denied hearing voices, denied seeing things, does not appear to be psychotic. pt tolerates meds well, no side effects observed or reported, AIMS 0, no EPS, pt c/o of sleepiness, this policy writer sales educated pt that within a few days her body will get used to the medication, pt verbalized understanding. Impression: DSM 5 schizoaffective disorder bipolar disorder with psychosis PTSD Panic disorder CRIS Medication Change: Yes (prozac increased) Medical Record Reviewed: Yes Consults ordered or reviewed: medical team consult appreciated Mental Status Examination - Cognitive Function Orientation: Person, Place, Situation Memory: Intact Attention: Poor Concentration: Poor Association: WNL Fund of Knowledge: WNL - Mood Mood: Depressed - Affect Affect: Constricted (but more reactive) - Speech Speech: Appropriate - Formal Thought Process Formal Thought Process: Hallucinations (denied ) - Suicidal Ideation Suicidal Ideation: No - Homicidal Ideation Homicidal Ideation: No Goal/Treatment Plan - Goal/Treatment Plan Need for Continued Stay: Remain at risks for inpatient hospitalization, Severe depression anxiety, Discharge may exacerbated symptoms, Severe functional impairment Progress Toward Problem(s) and Goals/Treatment Plan: Milieu/structure/supportive therapy prozac 30mg po daily for depression and anxiety klonopin 1mg po bid for anxiety and mood stabilization depakote 500mg po tid for mood stabilization seroquel 150mg amhs for psychosis and mood stabilization ambien 5mg hs for insomnia depakote level 01/09/17 : 76 (most likely pt was compliant with meds) Medical team consult SW evaluation will monitor pt closely Estimated Date of D/C: 01/15/17 (will monitor closely)
[2017-01-10] MEDS: Divalproex 500 mg ER (ONCE DAILY formulation) PO SCH (16:04)
[2017-01-11] MEDS: Divalproex 500 mg DR(BID formulation) PO SCH ×3 (08:20→21:24)
[2017-01-11] MEDS: Divalproex 500 mg ER (ONCE DAILY formulation) PO SCH (13:13)
--- NOTE | 2017-01-11 15:42 | PCM.PYCHPN ---
Psychiatric Progress Note - Psychiatric Progress Note Patient seen today, length of contact: 30 minutes Patient Chief Complaint: "I am more depressed being here..." Problems Identified/Issues Discussed: Suicide/ homicide prevention, past psychiatric h/o, current psychiatric symptoms , medical problems, risk/benefits and alternatives of medications, medications compliance, coping strategies, substance abuse h/o, relapse prevention, importance of follow up with psychiatrist and therapist, discharge plan. Medical Problems: pt is relatively healthy was seen by Medical team consult appreciated Diagnostic Results: 01/07/17 22:10 01/07/17 22:10 Lab Results 01/09/17 07:00: Valproic Acid 76 01/08/17 07:30: RPR Nonreactive 01/08/17 05:28: TSH 3rd Generation 0.56 01/08/17 05:00: Fasting Glucose 77, Triglycerides 136, Cholesterol 294 H, LDL Cholesterol Direct 214 H, HDL Cholesterol 52 01/07/17 22:10: Alcohol, Quantitative < 10 01/07/17 22:10: Salicylates < 1 L, Acetaminophen < 10.0 L 01/07/17 22:10: Sodium 139, Potassium 4.2, Chloride 105, Carbon Dioxide 28, Anion Gap 10, BUN 13, Creatinine 0.7, Est GFR ( Amer) > 60, Est GFR (Non- Af Amer) > 60, Random Glucose 76, Calcium 8.8, Total Bilirubin 0.4, AST 26, ALT 21, Alkaline Phosphatase 57, Total Protein 7.7, Albumin 3.9, Globulin 3.7, Albumin/Globulin Ratio 1.1 01/07/17 22:10: WBC 7.2 D, RBC 4.52, Hgb 12.6, Hct 37.6, MCV 83.2, MCH 27.9, MCHC 33.5, RDW 15.4 H, Plt Count 240, MPV 9.8, Gran % 55.9, Lymph % (Auto) 33.4 , [place] % (Auto) 7.2 H, Eos % (Auto) 3.2, Baso % (Auto) 0.3, Gran # 4.04, Lymph # 2.4, [place] # 0.5, Eos # 0.2, Baso # 0.02 01/07/17 20:45: Urine Opiates Screen Negative, Urine Methadone Screen Negative, Ur Barbiturates Screen Negative, Ur Phencyclidine Scrn Negative, Ur Amphetamines Screen Negative, U Benzodiazepines Scrn Positive H, U Oth Cocaine Metabols Negative, U Cannabinoids Screen Negative 01/07/17 20:45: Urine Color Yellow, Urine Appearance Clear, Urine pH 6.0, Ur Specific [place] >= 1.030, Urine Protein Negative, Urine Glucose (UA) Negative, Urine Ketones Trace H, Urine Blood Negative, Urine Nitrate Negative, Urine Bilirubin Negative, Urine Urobilinogen 0.2, Ur Leukocyte Esterase Negative, Urine HCG, Qual Negative Vital Signs Temp Pulse Resp BP Pulse Ox 01/09/17 07:09 97.6 F 61 20 112/65 01/08/17 16:27 72 109/73 01/08/17 07:18 98.8 F 74 20 115/88 01/08/17 03:11 71 18 127/81 98 01/07/17 23:30 70 18 126/69 100 01/07/17 20:27 98.0 F 76 18 116/84 97 Temp Pulse Resp BP Pulse Ox 97.8 F 66 18 112/76 98 01/10/17 06:50 01/10/17 06:50 01/10/17 06:50 01/10/17 06:50 01/08/17 03:11 DSM 5 Symptoms Update: shortly pt 46yo female, h/o mental illness, most likely bipolar disorder with psychosis, vs schizoaffective disorder, multiple psychiatric admissions in the past, most recent was in November 2016, this machine sign writer is very familiar with this pt from the service in the ED (11/19/2016), back then pt was screened by [facility] was accepted there. This time pt came to the hospital looking for help for her depressive symptoms, suicidal ideation with the plan to overdose on pills, pt also verbalizing thoughts of harming others. Pt was recently discharged from the [facility] in December 2016, where she staid for 12 days. Pt currently under care of local psychiatrist Dr.Paul Gupta, needs further evaluation/ stabilization and medication titration. pt was seen today at the tx team meeting, pt submitted 48 hr notice at 7am today , requesting to be discharged. Pt said that she feels "fine, but more depressed to be here", pt presented with some improvement with her personal hygiene, pt was less irritable. as per staff pt is compliant with meds, no agitation or aggression, pt is irritable and annoyed. pt denied hearing voices, denied seeing things, does not appear to be psychotic. pt tolerates meds well, no side effects observed or reported, AIMS 0, no EPS, pt c/o of sleepiness, this machine sign writer educated pt that within a few days her body will get used to the medication, pt verbalized understanding. Impression: DSM 5 schizoaffective disorder bipolar disorder with psychosis PTSD Panic disorder CRIS Medication Change: No Medical Record Reviewed: Yes Mental Status Examination - Cognitive Function Orientation: Person, Place, Situation Memory: Intact Attention: Poor (some improvement) Concentration: Poor (some improvement) Association: WNL Fund of Knowledge: WNL - Mood Mood: Depressed ("I feel more depressed being here") - Affect Affect: Constricted (but more reactive) - Speech Speech: Appropriate - Formal Thought Process Formal Thought Process: Hallucinations (denied ) - Suicidal Ideation Suicidal Ideation: No - Homicidal Ideation Homicidal Ideation: No Goal/Treatment Plan - Goal/Treatment Plan Need for Continued Stay: Remain at risks for inpatient hospitalization, Severe depression anxiety, Discharge may exacerbated symptoms, Severe functional impairment Progress Toward Problem(s) and Goals/Treatment Plan: Milieu/structure/supportive therapy prozac 30mg po daily for depression and anxiety klonopin 1mg po bid for anxiety and mood stabilization depakote 500mg po tid for mood stabilization seroquel 150mg amhs for psychosis and mood stabilization ambien 5mg hs for insomnia depakote level 01/09/17 : 76 (most likely pt was compliant with meds) will f/u on depakote level tomorrow Medical team consult SW evaluation will monitor pt closely possible d/c tomorrow, pt does not meet criteria for [facility] screening. Estimated Date of D/C: 01/15/17 (will monitor closely)
[2017-01-12 07:31] VITALS: BP 144/79; PULSE 58; RESP 20; TEMP 97.5
[2017-01-12] MEDS: Divalproex 500 mg DR(BID formulation) PO SCH (10:01)
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
== END 2017-01-12 12:31 | disposition home or self-care (01) | DRG 885 ==
LOC: ED 20:19 → ERH 01-08 04:11 → PSYC 01-08 04:32
PROVIDERS: ADMIT Psychiatry & Neurology Psychiatry; ATTEND Psychiatry & Neurology Psychiatry
DX: F31.9 Bipolar disorder, unspecified (principal); F25.9 Schizoaffective disorder, unspecified; R45.851 Suicidal ideations; E78.5 Hyperlipidemia, unspecified; F43.10 Post-traumatic stress disorder, unspecified; F41.0 Panic disorder [episodic paroxysmal anxiety]; F17.210 Nicotine dependence, cigarettes, uncomplicated; G47.00 Insomnia, unspecified; Z79.899 Other long term (current) drug therapy; Z91.5 Personal history of self-harm; Z88.5 Allergy status to narcotic agent; R40.2412 Glasgow coma scale score 13-15, at arrival to emergency department; E78.00 Pure hypercholesterolemia, unspecified; Z62.810 Personal history of physical and sexual abuse in childhood; Z62.811 Personal history of psychological abuse in childhood; Z81.8 Family history of other mental and behavioral disorders; Z87.898 Personal history of other specified conditions; F41.1 Generalized anxiety disorder

== ENCOUNTER 2017-07-28 16:39 | Emergency (ER) | payer MEDICAID, MEDICARE, OTHER ==
[2017-07-28 16:40] VITALS: BMI 28.3
[2017-07-28 17:16] VITALS: RESP 18; TEMP 98.1
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
[2017-07-28 19:47] VITALS: BP 127/72; PULSE 74; O2SAT 99
== END 2017-07-28 18:55 | disposition home or self-care (01) ==
LOC: ED 16:39
DX: S61.012A Laceration without foreign body of left thumb without damage to nail, initial encounter (principal); S61.011A Laceration without foreign body of right thumb without damage to nail, initial encounter; X58.XXXA Exposure to other specified factors, initial encounter; F17.210 Nicotine dependence, cigarettes, uncomplicated; F20.9 Schizophrenia, unspecified; F31.9 Bipolar disorder, unspecified
CPT/HCPCS: 96372; 99284; J1885

== ENCOUNTER 2017-09-26 03:50 | Emergency (ER) | payer MEDICARE, OTHER ==
[2017-09-26 03:51] VITALS: BMI 28.3
[2017-09-26 04:01] VITALS: TEMP 97.7; O2SAT 97
--- NOTE | 2017-09-26 04:25 | ED PDOC ---
Addendum entered and electronically signed by Sarwat Betts DO 09/26/17 06: 49: Disposition Clinical Impression: Fall, Laceration of head Disposition Time: 07:00 Condition: STABLE Additional Instructions: Please follow up with primary care doctor in 5 days to remove shanthi. If you do not have a primary care doctor please come back to the ED to have them removed. Original Note: Arrival/HPI - General Historian: Patient - History of Present Illness Time/Duration: 4-6 hours Symptom Onset: Sudden Symptom Course: Unchanged Activities at Onset: Rest <Sarwat Betts - Last Filed: 09/26/17 06:14> <Cedric Pugh - Last Filed: 09/26/17 06:48> - General Time Seen by Provider: 09/26/17 03:52 - History of Present Illness Narrative History of Present Illness (Text): 09/26/17 04:21 Patient is a 46F with a past medical history of alcohol abuse comes to ED after falling down the stairs. Patient had been drinking all evening, was climbing the stairs and then fell backwards down a flight of stairs. Patient was unconscious for an unknown amount of time but she thinks it was approximately 15 minutes. She then got up and went to the phone to call an ambulance. ( Sarwat Betts) Past Medical History - Infectious Disease Hx of Infectious Diseases: None - Tetanus Immunization Tetanus Immunization: Unknown - Past Medical History Past Medical History: No Previous - Cardiac Hx Cardiac Disorders: No Hx Hypertension: No - Pulmonary Hx Respiratory Disorders: No Hx Tuberculosis: No - Neurological Hx Neurological Disorder: No HX Cerebrovascular Accident: No Hx Seizures: No - HEENT Hx HEENT Disorder: No - Renal Hx Renal Disorder: No - Endocrine/Metabolic Hx Endocrine Disorders: No - Hematological/Oncological Hx Blood Disorders: No Hx Cancer: No - Integumentary Hx Dermatological Disorder: No - Musculoskeletal/Rheumatological Hx Musculoskeletal Disorders: No - Gastrointestinal Hx Gastrointestinal Disorders: No - Genitourinary/Gynecological Hx Genitourinary Disorders: No Hx Sexually Transmitted Diseases: No - Psychiatric Hx Psychophysiologic Disorder: Yes Hx Bipolar Disorder: Yes Hx Schizophrenia: Yes Hx Substance Use: Yes (marijuana) - Surgical History Other/Comment: gastric sleeve 2013 - Anesthesia Hx Anesthesia: Yes Hx Anesthesia Reactions: No Hx Malignant Hyperthermia: No - Suicidal Assessment Feels Threatened In Home Enviroment: No <Sarwat Betts - Last Filed: 09/26/17 06:14> - Provider Review Nursing Documentation Reviewed: Yes <LexyCedric - Last Filed: 09/26/17 06:48> Family/Social History Family/Social History: Unknown Family HX Smoking Status: Heavy Smoker > 10 Cigarettes Daily Hx Alcohol Use: Yes (stopped 8 years ago) Hx Substance Use: Yes (marijuana) Substance used: Herion, Cocaine, PCP Hx Substance Use Treatment: Yes <AlpeshSarwat - Last Filed: 09/26/17 06:14> - Physician Review Nursing Documentation Reviewed: Yes Family/Social History: Unknown Family HX <LexyCedric - Last Filed: 09/26/17 06:48> Allergies/Home Meds <AndreweliazarduncanSarwat Last Filed: 09/26/17 06:14> <LexyCedric - Last Filed: 09/26/17 06:48> Allergies/Adverse Reactions: Allergies cephalexin [From Keflex] Allergy (Verified 07/28/17 17:16) RASH codeine Allergy (Verified 07/28/17 17:16) NAUSEA Home Medications: Home Meds Medication Instructions Recorded Confirmed Buprenorphine HCl/Naloxone HCl 1 each SL BID 07/28/17 09/26/17 [Suboxone 8 mg-2 mg Sl Film] DULoxetine [Cymbalta] 60 mg PO DAILY 07/28/17 09/26/17 diaZEpam [Valium] 2 mg PO BID 07/28/17 09/26/17 Review of Systems - Review of Systems Constitutional: Normal Eyes: Normal ENT: Normal Respiratory: Normal Cardiovascular: Normal Gastrointestinal: Normal Genitourinary Female: Normal Musculoskeletal: Normal Skin: Normal Neurological: Normal Endocrine: Normal Hemo/Lymphatic: Normal Psychiatric: Normal <AlpeshSarwat - Last Filed: 09/26/17 06:14> - Physician Review All systems were reviewed & negative as marked: Yes <LexyCedric - Last Filed: 09/26/17 06:48> Physical Exam Vital Signs Reviewed: Yes Temperature: Afebrile Blood Pressure: Normal Pulse: Regular Respiratory Rate: Normal Appearance: Positive for: Well-Appearing, Non-Toxic, Comfortable Pain Distress: None Mental Status: Positive for: Alert and Oriented X 3 - Systems Exam Head: Present: Laceration (2cm laceration on the posterior aspect of the head) Pupils: Present: PERRL Extroacular Muscles: Present: EOMI Conjunctiva: Present: Normal Mouth: Present: Moist Mucous Membranes Neck: Present: Normal Range of Motion Respiratory/Chest: Present: Clear to Auscultation, Good Air Exchange. No: Respiratory Distress, Accessory Muscle Use Cardiovascular: Present: Regular Rate and Rhythm, Normal S1, S2. No: Murmurs Abdomen: Present: Normal Bowel Sounds. No: Tenderness, Distention, Peritoneal Signs Upper Extremity: Present: Normal Inspection. No: Cyanosis Lower Extremity: Present: Normal Inspection. No: Edema Neurological: Present: GCS=15, CN II-XII Intact, Speech Normal Skin: Present: Warm, Dry, Normal Color. No: Rashes Psychiatric: Present: Alert, Oriented x 3 <Sarwat Betts - Last Filed: 09/26/17 06:14> Vital Signs Temp Pulse Resp BP Pulse Ox 09/26/17 04:00 97.7 F 60 17 149/89 97 Medical Decision Making <Sarwat Betts - Last Filed: 09/26/17 06:14> <Cedric Pugh - Last Filed: 09/26/17 06:48> ED Course and Treatment: 09/26/17 04:[address] 4 shanthi placed on the laceration on the back of the head 09/26/17 06:14 CT of the head negative 09/26/17 06:16 Final dispo pending sobriety (Sarwat Betts) Impression: Pt seen and evaluated with medical corps officer. Pt, whose past medical history includes alcohol abuse, presented s/p falling backward down a flight stairs after drinking alcohol tonight. Aware and agree with HPI, clinical findings, plan, and management. Pt examined at bedside. On exam, laceration to posterior scalp, no neck pain or back pain noted on physical exam. Pt ambulating in ER, advised to remain in stretcher. Plan: -- CT Head w/o contrast -- Tylenol -- Reassess and disposition (Cedric Pugh) - RAD Interpretation Radiology Orders: 09/26/17 04:13 HEAD W/O CONTRAST [CT] Stat - Medication Orders Current Medication Orders: Discontinued Medications Acetaminophen (Tylenol 325mg Tab) 650 mg PO STAT STA Stop: 09/26/17 04:14 Last Admin: 09/26/17 05:22 Dose: 650 mg MAR Pain/Vitals Document 09/26/17 05:22 RD (Rec: 09/26/17 05:22 RD [id number]) Pain Reassessment Is This A Pain ReAssessment? No Sleep Is patient sleeping during reassessment? No Presence of Pain Presence of Pain Yes - PA / DOZER OPERATOR / Resident Statement /DO has reviewed & agrees with the documentation as recorded. MD/DO has examined the patient and agrees with the treatment plan. <Sarwat Betts - Last Filed: 09/26/17 06:14> - PA / DOZER OPERATOR / Resident Statement / has reviewed & agrees with the documentation as recorded. MD/DO has examined the patient and agrees with the treatment plan. <Cedric Pugh - Last Filed: 09/26/17 06:48> Disposition/Present on Arrival - Present on Arrival Any Indicators Present on Arrival: No History of DVT/PE: No History of Uncontrolled Diabetes: No Urinary Catheter: No History of Decub. Ulcer: No History Surgical Site Infection Following: None - Disposition Have Diagnosis and Disposition been Completed?: Yes Disposition Time: 06:17 <Sarwat Betts - Last Filed: 09/26/17 06:14> - Present on Arrival Any Indicators Present on Arrival: No - Disposition Have Diagnosis and Disposition been Completed?: No Disposition Time: 07:00 <Cedric Pugh - Last Filed: 09/26/17 06:48> - Disposition Diagnosis: Fall, Laceration of head Patient Problems: Current Active Problems Problem Status Onset Fall Acute Laceration of head Acute Condition: STABLE
--- NOTE | 2017-09-26 05:57 | CT ---
EXAM: CT Head Without Intravenous Contrast CLINICAL HISTORY: 46 years old, female; Injury or trauma; Fall; Initial encounter; Laceration; Without residual foreign body; Scalp TECHNIQUE: Axial computed tomography images of the head/brain without intravenous contrast. All CT scans at this facility use one or more dose reduction techniques, viz.: automated exposure control; ma/kV adjustment per patient size (including targeted exams where dose is matched to indication; i.e. head); or iterative reconstruction technique. Coronal and sagittal reformatted images were created and reviewed. COMPARISON: No relevant prior studies available. FINDINGS: Brain: There is mild diffuse cerebral atrophy present, consistent with this patient's age. No hemorrhage. No significant white matter disease. Ventricles: Unremarkable. No ventriculomegaly. Bones/joints: Unremarkable. No acute fracture. Soft tissues: Unremarkable. Sinuses: Unremarkable as visualized. No acute sinusitis. Mastoid air cells: Unremarkable as visualized. No mastoid effusion. IMPRESSION: No acute intracranial findings.
[2017-09-26 07:39] VITALS: RESP 16
--- NOTE | 2017-09-26 08:09 | ED PDOC ---
Physical Exam Vital Signs Temp Pulse Resp BP Pulse Ox 09/26/17 09:09 68 16 120/72 97 09/26/17 07:00 64 16 118/78 97 09/26/17 04:00 97.7 F 60 17 149/89 97 Medical Decision Making ED Course and Treatment: 09/26/17 07:08 Patient transferred to de by Dr. Pugh. Patient currently intoxicated and sleeping at this time. 09/26/17 09:08 Patient ambulating in emergency room. patient to be discharged with follow up instructions. - RAD Interpretation Radiology Orders: 09/26/17 04:13 HEAD W/O CONTRAST [CT] Stat - Medication Orders Current Medication Orders: Discontinued Medications Acetaminophen (Tylenol 325mg Tab) 650 mg PO STAT STA Stop: 09/26/17 04:14 Last Admin: 09/26/17 05:22 Dose: 650 mg MAR Pain/Vitals Document 09/26/17 05:22 RD (Rec: 09/26/17 05:22 RD [id number]) Pain Reassessment Is This A Pain ReAssessment? No Sleep Is patient sleeping during reassessment? No Presence of Pain Presence of Pain Yes - Scribe Statement The provider has reviewed the documentation as recorded by the Yang Serrato Provider Scribe Attestation: All medical record entries made by the Scribe were at my direction and personally dictated by me. I have reviewed the chart and agree that the record accurately reflects my personal performance of the history, physical exam, medical decision making, and the department course for this patient. I have also personally directed, reviewed, and agree with the discharge instructions and disposition. Disposition/Present on Arrival - Present on Arrival Any Indicators Present on Arrival: No History of DVT/PE: No History of Uncontrolled Diabetes: No Urinary Catheter: No History of Decub. Ulcer: No History Surgical Site Infection Following: None - Disposition Have Diagnosis and Disposition been Completed?: Yes Diagnosis: Fall, Laceration of head, Alcohol use Disposition: HOME/ ROUTINE Disposition Time: 09:00 Patient Problems: Current Active Problems Problem Status Onset Fall Acute Laceration of head Acute Condition: IMPROVED Discharge Instructions (ExitCare): Alcohol Use - When Is Drinking a Problem?, Laceration Repair With Shanthi (DC) Additional Instructions: Thank you for letting us take care of you today. The emergency medical care you received today was directed at your acute symptoms. If you were prescribed any medication, please fill it and take as directed. It may take several days for your symptoms to resolve. Return to the Emergency Department if your symptoms worsen, do not improve, or if you have any other problems. Please contact your doctor or call one of the physicians/clinics you have been referred to that are listed on the Patient Visit Information form that is included in your discharge packet. Bring any paperwork you were given at discharge with you along with any medications you are taking to your follow up visit. Our treatment cannot replace ongoing medical care by a primary care provider (PCP) outside of the emergency department. Thank you for allowing the [facility] team to be part of your care today. Please follow up with primary care doctor in 7-10 days to remove shanthi. If you do not have a primary care doctor please come back to the ED to have them removed. Forms: [employer] (Albanian)
[2017-09-26 09:11] VITALS: BP 120/72; PULSE 68
== END 2017-09-26 09:32 | disposition home or self-care (01) ==
LOC: ED 03:50
DX: S01.01XA Laceration without foreign body of scalp, initial encounter (principal); W10.9XXA Fall (on) (from) unspecified stairs and steps, initial encounter; Y92.009 Unspecified place in unspecified non-institutional (private) residence as the place of occurrence of the external cause

== ENCOUNTER 2017-10-05 16:20 | Emergency (ER) | payer MEDICARE ==
[2017-10-05 16:20] VITALS: BMI 28.3
[2017-10-05 16:31] VITALS: BP 150/90; PULSE 62; RESP 16; TEMP 97.9; O2SAT 100
--- NOTE | 2017-10-05 16:42 | ED PDOC ---
Arrival/HPI - General Chief Complaint: Suture/Staple Removal Time Seen by Provider: 10/05/17 16:31 Historian: Patient - History of Present Illness Narrative History of Present Illness (Text): 10/05/17 16:39 46yo female who present to Emergency department for staple removal from her scalp. States shanthi was placed in here on 09/26/17. She also report wound to her left heel. States she have a dry heel and often picks on it. Notes that it forms a wound intermittently. She denies pain to the area, fever, redness, purulent discharge, any other complaint. Past Medical History - Provider Review Nursing Documentation Reviewed: Yes - Infectious Disease Hx of Infectious Diseases: None - Tetanus Immunization Tetanus Immunization: Unknown - Past Medical History Past Medical History: No Previous - Cardiac Hx Cardiac Disorders: No Hx Hypertension: No - Pulmonary Hx Respiratory Disorders: No Hx Tuberculosis: No - Neurological Hx Neurological Disorder: No - HEENT Hx HEENT Disorder: No - Renal Hx Renal Disorder: No - Endocrine/Metabolic Hx Endocrine Disorders: No - Hematological/Oncological Hx Blood Disorders: No Hx Cancer: No - Integumentary Hx Dermatological Disorder: Yes Other/Comment: LACERATION - Musculoskeletal/Rheumatological Hx Musculoskeletal Disorders: No - Gastrointestinal Hx Gastrointestinal Disorders: No - Genitourinary/Gynecological Hx Genitourinary Disorders: No Hx Sexually Transmitted Diseases: No - Psychiatric Hx Psychophysiologic Disorder: Yes Hx Bipolar Disorder: Yes Hx Schizophrenia: Yes Hx Substance Use: Yes (marijuana) - Surgical History Other/Comment: gastric sleeve 2012 - Anesthesia Hx Anesthesia: Yes Hx Anesthesia Reactions: No Hx Malignant Hyperthermia: No - Suicidal Assessment Feels Threatened In Home Enviroment: No Family/Social History - Physician Review Nursing Documentation Reviewed: Yes Family/Social History: Unknown Family HX Smoking Status: Heavy Smoker > 10 Cigarettes Daily Hx Alcohol Use: Yes (stopped 8 years ago) Hx Substance Use: Yes (marijuana) Substance used: Herion, Cocaine, PCP Hx Substance Use Treatment: Yes Allergies/Home Meds Allergies/Adverse Reactions: Allergies cephalexin [From Keflex] Allergy (Verified 10/05/17 16:22) RASH codeine Allergy (Verified 10/05/17 16:22) NAUSEA Home Medications: Home Meds Medication Instructions Recorded Confirmed Buprenorphine HCl/Naloxone HCl 1 each SL BID 07/28/17 10/05/17 [Suboxone 8 mg-2 mg Sl Film] DULoxetine [Cymbalta] 60 mg PO DAILY 07/28/17 10/05/17 diaZEpam [Valium] 2 mg PO BID 07/28/17 10/05/17 Review of Systems - Physician Review All systems were reviewed & negative as marked: Yes - Review of Systems Constitutional: Normal Eyes: Normal ENT: Normal Respiratory: Normal Cardiovascular: Normal Gastrointestinal: Normal Genitourinary Female: Normal Musculoskeletal: Normal Skin: Other (Left heel wound and staple removal) Neurological: Normal Endocrine: Normal Hemo/Lymphatic: Normal Psychiatric: Normal Physical Exam Vital Signs Reviewed: Yes Vital Signs Temp Pulse Resp BP Pulse Ox 10/05/17 16:23 97.9 F 62 16 150/90 100 Temperature: Afebrile Blood Pressure: Normal Pulse: Regular Respiratory Rate: Normal Appearance: Positive for: Well-Appearing, Non-Toxic, Comfortable Pain Distress: None Mental Status: Positive for: Alert and Oriented X 3 - Systems Exam Head: Present: Atraumatic, Normocephalic Pupils: Present: PERRL Extroacular Muscles: Present: EOMI Conjunctiva: Present: Normal Mouth: Present: Moist Mucous Membranes Neck: Present: Normal Range of Motion Respiratory/Chest: Present: Clear to Auscultation, Good Air Exchange. No: Respiratory Distress, Accessory Muscle Use Cardiovascular: Present: Regular Rate and Rhythm, Normal S1, S2. No: Murmurs Abdomen: No: Tenderness, Distention, Peritoneal Signs Back: Present: Normal Inspection Upper Extremity: Present: Normal Inspection. No: Cyanosis, Edema Lower Extremity: Present: NORMAL PULSES, Normal ROM, Neurovascularly Intact, Other (Dry scaly left plantar foot/heel with superficial linear wound on the heel). No: Edema, Tenderness, Swelling, Erythema, Temperature Abnormalties Neurological: Present: GCS=15, CN II-XII Intact, Speech Normal Skin: Present: Warm, Dry, Normal Color, Other (4staples noted in place to left occipital scalp. No sign of erythema. No discharge. No erythema.). No: Rashes Psychiatric: Present: Alert, Oriented x 3, Normal Insight, Normal Concentration Medical Decision Making ED Course and Treatment: 10/05/17 16:42 4staples removed. Scalp edges appear well approximated. Pt advised to keep area clean and dry Advised to keep feet moisturize and apply topical antibiotics to the wound. Disposition/Present on Arrival - Present on Arrival Any Indicators Present on Arrival: No History of DVT/PE: No History of Uncontrolled Diabetes: No Urinary Catheter: No History of Decub. Ulcer: No History Surgical Site Infection Following: None - Disposition Have Diagnosis and Disposition been Completed?: Yes Diagnosis: Removal of staple, Abrasion, foot Disposition: HOME/ ROUTINE Disposition Time: 16:45 Patient Plan: Discharge Condition: STABLE Discharge Instructions (ExitCare): Staple Removal, Skin Abrasions (DC) Additional Instructions: Follow up with your doctor Return to Emergency department for any new or worsening symptoms Prescriptions: Bacitracin Ointment [Bacitracin] 30 gm TOP BID #1 tube Referrals: Krista Bullard DO [Primary Care Provider] - Follow up with primary
== END 2017-10-05 16:50 | disposition home or self-care (01) ==
LOC: ED 16:20
DX: Z48.02 Encounter for removal of sutures (principal); S90.812A Abrasion, left foot, initial encounter; X58.XXXA Exposure to other specified factors, initial encounter; F17.210 Nicotine dependence, cigarettes, uncomplicated

== ENCOUNTER 2018-09-19 03:06 | Emergency (ER) | payer MEDICARE, MEDICAID ==
[2018-09-19 03:14] VITALS: BMI 27.2
[2018-09-19 04:01] LABS: BASO # 0.02 K/mm3 (0.0-2.0); BASO % 0.2 % (0.0-3.0); EOS # 0.2 (0.0-0.7); LYMPH # 2.8 (1.2-3.4); LYMPH % 33.7 % (22.0-35.0); MEAN CORPUSCULAR HEMOGLOBIN 24.9 pg (25.0-35.0); MEAN PLATELET VOLUME 9.7 fl (7.0-11.0); MONO # 0.6 (0.1-0.6); MONO % 7.5 % (1.0-6.0); PH,URINE 6.5 (4.7-8.0); RBC 4.81 10^6/uL (3.5-6.1); RED CELL DISTRIBUTION WIDTH 16.6 % (11.5-14.5); URINE BILIRUBIN NEGATIVE (NEGATIVE); URINE BLOOD NEGATIVE (NEGATIVE); URINE GLUCOSE (UA) NEGATIVE (NEGATIVE); URINE LEUKOCYTE ESTERASE NEGATIVE Leu/uL (NEGATIVE); URINE PROTEIN NEGATIVE mg/dL (<30 mg/dL); URINE UROBILINOGEN 0.2 E.U./dL (<1 E.U./dL); WHITE BLOOD COUNT 8.3 10^3/uL (4.5-11.0)
--- NOTE | 2018-09-19 04:02 | ED PDOC ---
Arrival/HPI - General Chief Complaint: Psychiatric Evaluation Time Seen by Provider: 09/19/18 03:07 Historian: Patient - History of Present Illness Narrative History of Present Illness (Text): 09/19/18 03:07 Aggie Guzman is a 47 year old female, with a past medical history of suicidal ideation and bipolar disorder, who presents to the emergency department for suicidal ideation. Patient informs of a plan, but will not elaborate. Patient denies alcohol or drug use. Patient denies homicidal ideation, hallucinations, paranoia, fevers, chills, headache, dizziness, chest pain, shortness of breath, dyspnea on exertion, cough, abdominal pain, nausea, vomiting, diarrhea, back pain, neck pain, or any other complaint. Time/Duration: 24 hours Symptom Onset: Gradual Symptom Course: Unchanged Activities at Onset: Light Context: Home Past Medical History - Provider Review Nursing Documentation Reviewed: Yes - Infectious Disease Hx of Infectious Diseases: None - Tetanus Immunization Tetanus Immunization: Unknown - Past Medical History Past Medical History: No Previous - Cardiac Hx Hypertension: No - Pulmonary Hx Respiratory Disorders: No Hx Tuberculosis: No - Neurological Hx Seizures: No - HEENT Hx HEENT Disorder: No - Renal Hx Renal Disorder: No - Endocrine/Metabolic Hx Endocrine Disorders: No - Hematological/Oncological Hx Blood Disorders: No Hx Cancer: No - Integumentary Hx Dermatological Disorder: No - Musculoskeletal/Rheumatological Hx Musculoskeletal Disorders: No - Gastrointestinal Hx Gastrointestinal Disorders: No - Genitourinary/Gynecological Hx Sexually Transmitted Diseases: No - Psychiatric Hx Psychophysiologic Disorder: Yes Hx Anxiety: Yes Hx Bipolar Disorder: Yes Hx Depression: Yes Hx Schizophrenia: Yes Hx Substance Use: No (clean for 2 mos.) - Surgical History Hx Orthopedic Surgery: Yes (childhood age) Other/Comment: gastric sleeve 2012 - Anesthesia Hx Anesthesia: Yes Hx Anesthesia Reactions: No Hx Malignant Hyperthermia: No - Suicidal Assessment Feels Threatened In Home Enviroment: No Family/Social History - Physician Review Nursing Documentation Reviewed: Yes Family/Social History: No Known Family HX Smoking Status: Heavy Smoker > 10 Cigarettes Daily Hx Alcohol Use: No Hx Substance Use: No (clean for 2 mos.) Substance used: Herion, Cocaine, PCP Hx Substance Use Treatment: Yes Allergies/Home Meds Allergies/Adverse Reactions: Allergies cephalexin [From Keflex] Allergy (Verified 09/19/18 04:46) RASH codeine Allergy (Verified 09/19/18 04:46) NAUSEA Home Medications: Home Meds Medication Instructions Recorded Confirmed DULoxetine [Cymbalta] 60 mg PO DAILY 07/28/17 09/19/18 Clonazepam [Klonopin] 1 mg PO DAILY 09/19/18 09/19/18 Gabapentin 1 tab PO DAILY 09/19/18 09/19/18 traZODone [Desyrel] 1 tab PO HS 09/19/18 09/19/18 Review of Systems - Physician Review All systems were reviewed & negative as marked: Yes - Review of Systems Constitutional: absent: Fevers, Night Sweats Respiratory: absent: SOB, Cough Cardiovascular: absent: Chest Pain, FAGAN Gastrointestinal: absent: Abdominal Pain, Diarrhea, Nausea, Vomiting Musculoskeletal: absent: Back Pain, Neck Pain Neurological: absent: Headache, Dizziness Psychiatric: Suicidal Ideation. absent: Other (homicidal ideation, hallucinations, paranoia) Physical Exam - Systems Exam Head: Present: Atraumatic, Normocephalic Pupils: Present: PERRL Extroacular Muscles: Present: EOMI Conjunctiva: Present: Normal Mouth: Present: Moist Mucous Membranes Respiratory/Chest: Present: Clear to Auscultation, Good Air Exchange. No: Respiratory Distress, Accessory Muscle Use, Wheezes, Rales, Rhonchi Cardiovascular: Present: Regular Rate and Rhythm, Normal S1, S2. No: Murmurs, Rub, Gallop Abdomen: Present: Normal Bowel Sounds. No: Tenderness, Distention, Peritoneal Signs Upper Extremity: Present: Normal Inspection. No: Cyanosis, Edema Lower Extremity: Present: Normal Inspection. No: Edema Skin: Present: Warm, Dry, Normal Color. No: Rashes Psychiatric: Present: Alert, Oriented x 3, Normal Insight, Normal Concentration, Suicidal Ideation Medical Decision Making ED Course and Treatment: 09/19/18 03:07 Impression: Aggie Guzman is a 47 year old female who presents to the emergency department with suicidal ideation. Patient informs of a plan but will not elaborate. Patient denies homicidal ideation, hallucinations, or paranoia. Differential Diagnosis included but are not limited to: Plan: -- EKG -- Labs -- Chest X-Ray -- Urinalysis -- HCG Qualitative Urine -- Reassess and disposition Prior Visits: Notes and results from previous visits were reviewed. Progress Notes pt cleared by pes for dc - RAD Interpretation Radiology Orders: 09/19/18 03:36 CHEST PORTABLE [RAD] Stat - Scribe Statement The provider has reviewed the documentation as recorded by the Scribe Sarwat Chavez All medical record entries made by the Scribe were at my direction and personally dictated by me. I have reviewed the chart and agree that the record accurately reflects my personal performance of the history, physical exam, medical decision making, and the department course for this patient. I have also personally directed, reviewed, and agree with the discharge instructions and disposition. Disposition/Present on Arrival - Present on Arrival Any Indicators Present on Arrival: No History of DVT/PE: No History of Uncontrolled Diabetes: No Urinary Catheter: No History of Decub. Ulcer: No History Surgical Site Infection Following: None - Disposition Have Diagnosis and Disposition been Completed?: Yes Diagnosis: Bipolar 1 disorder Disposition: HOME/ ROUTINE Disposition Time: 05:45 Condition: GOOD Discharge Instructions (ExitCare): Bipolar Disorder Forms: [employer] (Malay)
[2018-09-19 04:05] LABS: URINE APPEARANCE CLEAR (CLEAR); URINE COLOR YELLOW (YELLOW)
[2018-09-19 04:06] LABS: HCG,QUALITATIVE URINE NEGATIVE (NEGATIVE)
[2018-09-19 04:10] LABS: ACETAMINOPHEN < 10.0 ug/ml (10.0-20.0); SALICYLATE < 1 mg/dL (2.0-20.0)
[2018-09-19 04:12] VITALS: TEMP 97.6
[2018-09-19 04:12] LABS: ALB/GLOB RATIO 1.1 (1.1-1.8); ALBUMIN 4.4 g/dL (3.0-4.8); ALT/SGPT 9 U/L (7-56); AST/SGOT 28 U/L (14-36); BLOOD UREA NITROGEN 13 mg/dL (7-21); CALCIUM 9.1 mg/dL (8.4-10.5); GFR NON-AFRICAN AMERICAN > 60
[2018-09-19 04:20] LABS: BENZODIAZEPINES, UR NEGATIVE (NEGATIVE)
[2018-09-19 06:18] LABS: BARBITURATES, UR NEGATIVE (NEGATIVE); OPIATES, UR NEGATIVE (NEGATIVE); PHENCYCLIDINE, UR NEGATIVE (NEGATIVE)
[2018-09-19 06:59] VITALS: BP 117/68; PULSE 65; RESP 17; O2SAT 100
--- NOTE | 2018-09-19 10:01 | RAD ---
Date of service: 09/19/2018 HISTORY: pes COMPARISON: 01/07/2017 FINDINGS: LUNGS: No active pulmonary disease. PLEURA: No significant pleural effusion identified, no pneumothorax apparent. CARDIOVASCULAR: No aortic atherosclerotic calcification present. Normal cardiac size. No pulmonary vascular congestion. OSSEOUS STRUCTURES: No significant abnormalities. VISUALIZED UPPER ABDOMEN: Normal. OTHER FINDINGS: None. IMPRESSION: No active disease.
--- NOTE | 2018-09-19 10:39 | CARD ---
APPROVED REPORT Date of service: 09/19/2018 EKG Measurement Heart [id number] <Conclusion> Normal sinus rhythm T wave abnormality, consider inferior ischemia T wave abnormality, consider anterior ischemia Prolonged QT Abnormal ECG
== END 2018-09-19 05:46 | disposition home or self-care (01) ==
LOC: ED 03:06
DX: F31.9 Bipolar disorder, unspecified (principal); F41.9 Anxiety disorder, unspecified
CPT/HCPCS: 71045; 80053; 81003; 81025; 83735; 84703; 85025; 90791; 93005; 99284; G0480

== ENCOUNTER 2018-10-05 00:22 | Emergency (ER) | payer MEDICARE, MEDICAID ==
[2018-10-05 00:23] VITALS: BMI 27.2
[2018-10-05 00:31] VITALS: RESP 18
--- NOTE | 2018-10-05 00:56 | ED PDOC ---
Arrival/HPI - General Chief Complaint: Headache Time Seen by Provider: 10/05/18 00:24 Historian: Patient - History of Present Illness Narrative History of Present Illness (Text): 10/05/18 00:53 A 47 year old female, whose past medical history includes bipolar disorder and COPD, presents to the emergency room complaining of a migraine headache and occasional palpitations since earlier today. Patient states she missed taking her klonopin does today. Patient denies any fever, chills, shortness of breath, neck pain, back pain, visual disturbances, or any other symptoms. No PMD Time/Duration: Other (earlier today) Symptom Onset: Gradual Symptom Course: Unchanged Activities at Onset: Light Context: Home Past Medical History - Provider Review Nursing Documentation Reviewed: Yes - Infectious Disease Hx of Infectious Diseases: None - Tetanus Immunization Tetanus Immunization: Unknown - Past Medical History Past Medical History: No Previous - Cardiac Hx Hypertension: No - Pulmonary Hx Respiratory Disorders: No Hx Tuberculosis: No - Neurological Hx Seizures: No - HEENT Hx HEENT Disorder: No - Renal Hx Renal Disorder: No - Endocrine/Metabolic Hx Endocrine Disorders: No - Hematological/Oncological Hx Blood Disorders: No Hx Cancer: No - Integumentary Hx Dermatological Disorder: No - Musculoskeletal/Rheumatological Hx Musculoskeletal Disorders: No - Gastrointestinal Hx Gastrointestinal Disorders: No - Genitourinary/Gynecological Hx Sexually Transmitted Diseases: No - Psychiatric Hx Psychophysiologic Disorder: Yes Hx Anxiety: Yes Hx Bipolar Disorder: Yes Hx Depression: Yes Hx Schizophrenia: Yes Hx Substance Use: No (clean for 2 mos.) - Surgical History Hx Orthopedic Surgery: Yes (childhood age) Other/Comment: gastric sleeve 2012 - Anesthesia Hx Anesthesia: Yes Hx Anesthesia Reactions: No Hx Malignant Hyperthermia: No - Suicidal Assessment Feels Threatened In Home Enviroment: No Family/Social History - Physician Review Nursing Documentation Reviewed: Yes Family/Social History: No Known Family HX Smoking Status: Heavy Smoker > 10 Cigarettes Daily Hx Alcohol Use: No Hx Substance Use: No (clean for 2 mos.) Substance used: Herion, Cocaine, PCP Hx Substance Use Treatment: Yes Allergies/Home Meds Allergies/Adverse Reactions: Allergies cephalexin [From Keflex] Allergy (Verified 09/19/18 04:46) RASH codeine Allergy (Verified 09/19/18 04:46) NAUSEA Home Medications: Home Meds Medication Instructions Recorded Confirmed DULoxetine [Cymbalta] 60 mg PO DAILY 07/28/17 10/05/18 Clonazepam [Klonopin] 1 mg PO DAILY 09/19/18 10/05/18 Gabapentin 1 tab PO DAILY 09/19/18 10/05/18 traZODone [Desyrel] 1 tab PO HS 09/19/18 10/05/18 Review of Systems - Physician Review All systems were reviewed & negative as marked: Yes - Review of Systems Constitutional: absent: Fevers, Other (chills) Eyes: absent: Vision Changes Respiratory: absent: SOB Musculoskeletal: absent: Back Pain, Neck Pain Neurological: Headache (migraine headache) Physical Exam Vital Signs Reviewed: Yes Vital Signs Pulse Resp BP Pulse Ox 10/05/18 00:30 79 18 120/77 99 Temperature: Afebrile Blood Pressure: Normal Pulse: Regular Respiratory Rate: Normal Appearance: Positive for: Well-Appearing Pain Distress: None Mental Status: Positive for: Alert and Oriented X 3 - Systems Exam Head: Present: Atraumatic, Normocephalic Pupils: Present: PERRL Extroacular Muscles: Present: EOMI Conjunctiva: Present: Normal Neck: Present: Normal Range of Motion Respiratory/Chest: Present: Clear to Auscultation, Good Air Exchange. No: Respiratory Distress, Accessory Muscle Use Cardiovascular: Present: Regular Rate and Rhythm, Normal S1, S2. No: Murmurs Abdomen: No: Tenderness, Distention, Peritoneal Signs Back: Present: Normal Inspection Upper Extremity: Present: Normal Inspection. No: Cyanosis, Edema Lower Extremity: Present: Normal Inspection. No: Edema Neurological: Present: GCS=15, CN II-XII Intact, Speech Normal Skin: Present: Warm, Dry, Normal Color. No: Rashes Psychiatric: Present: Alert, Oriented x 3, Normal Insight, Normal Concentration Medical Decision Making ED Course and Treatment: 10/05/18 00:57 Impression:47 year old female presenting to the emergency room complaining of a migraine headache. Plan: -- EKG -- Labs -- CBC -- Chest X-ray -- Klonopin -- Tylenol -- Reassess and disposition Prior Visits: Notes and results from previous visits were reviewed. Progress Notes: 10/05/18 01:14 EKG: Ordered, reviewed, and independently interpreted the EKG. Rate : 82 BPM Rhythm : NSR Interpretation : No ST-T wave changes, prolonged QT. 10/05/18 01:19 Patient is refusing lab work and refusing to complete a full ER evaluation. Patient is stating she feels fine and wants to go home. Patient is leaving against medical advice and understands the risk as explained. Leaving Against Medical Advice (AMA): The patient is choosing to leave against medical advice. I have personally explained to the patient that choosing to do so may result in permanent bodily harm, disability, or . I have discussed at great length that without further evaluation and monitoring there may be unforeseen circumstances and/or deterioration causing permanent bodily harm or as a result of their choice. The patient is alert, oriented, and shows the mental capacity to make clear decisions regarding the patients health care at this time. The patient continues to wish to leave against medical advice. In light of the patients decision to leave against medical advice, follow-up has been arranged and the patient is aware of the importance to following up as instructed. The patient has been advised that they should return to the emergency room immediately if they change their mind at any time, or if their condition begins to change or worsen in any way. - Medication Orders Current Medication Orders: Discontinued Medications Acetaminophen (Tylenol 325mg Tab) 650 mg PO STAT STA Stop: 10/05/18 00:50 Clonazepam (Klonopin) 1 mg PO STAT STA; Protocol Stop: 10/05/18 00:51 - Scribe Statement The provider has reviewed the documentation as recorded by the Yang Gallegos All medical record entries made by the Mattibe were at my direction and personally dictated by me. I have reviewed the chart and agree that the record accurately reflects my personal performance of the history, physical exam, medical decision making, and the department course for this patient. I have also personally directed, reviewed, and agree with the discharge instructions and disposition. Disposition/Present on Arrival - Present on Arrival Any Indicators Present on Arrival: No History of DVT/PE: No History of Uncontrolled Diabetes: No Urinary Catheter: No History of Decub. Ulcer: No History Surgical Site Infection Following: None - Disposition Have Diagnosis and Disposition been Completed?: Yes Diagnosis: Heart palpitations Disposition: AGAINST MEDICAL ADVICE Disposition Time: 01:21 Condition: STABLE Forms: [employer] (Danish)
[2018-10-05 01:18] LABS: MEAN CELL VOLUME 78.3 fl (80.0-105.0); MEAN CORPUSCULAR HEMOGLOBIN 25.3 pg (25.0-35.0); MEAN CORPUSCULAR HGB CONC 32.4 g/dl (31.0-37.0); MEAN PLATELET VOLUME 8.9 fl (7.0-11.0); RBC 4.34 10^6/uL (3.5-6.1); RED CELL DISTRIBUTION WIDTH 16.5 % (11.5-14.5); WHITE BLOOD COUNT 11.9 10^3/uL (4.5-11.0)
[2018-10-05 01:19] VITALS: BP 122/71; PULSE 77; TEMP 98.1; O2SAT 98
[2018-10-05 01:38] LABS: ALB/GLOB RATIO 1.2 (1.1-1.8); ALBUMIN 4.1 g/dL (3.0-4.8); ALT/SGPT 28 U/L (7-56); AST/SGOT 58 U/L (14-36); BLOOD UREA NITROGEN 15 mg/dL (7-21); CALCIUM 8.5 mg/dL (8.4-10.5); GFR NON-AFRICAN AMERICAN > 60
[2018-10-05 01:40] LABS: TROPONIN I < 0.01 ng/mL
[2018-10-05 02:28] LABS: CK MB% 0.5 % (2.5-3.0)
--- NOTE | 2018-10-05 22:34 | CARD ---
APPROVED REPORT Date of service: 10/05/2018 EKG Measurement Heart [id number] <Conclusion> Normal sinus rhythm Nonspecific T wave abnormality Prolonged QT Abnormal ECG
== END 2018-10-05 01:21 | disposition left against medical advice (07) ==
LOC: ED 00:22
DX: R00.2 Palpitations (principal)